=== PATIENT | male | born 1965 | race Caucasian/White ===

== ENCOUNTER 2019-07-05 15:13 | Emergency (ER) | payer OTHER ==
[~2019-07-05] VITALS: Ht 188 cm; Wt 81.7 kg
--- OUTSIDE RECORDS SUMMARY | 2019-07-05 15:16 | XMS ---
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 Jae has no Care Guidelines for this patient. Serjio VISIT COUNT (12 MO.) 1 FROILAN Erickson TOTAL 1 NOTE: Visits indicate total known visits. ED/UCC VISIT TRACKING (12 MO.) 07/05/2019 15:15 FROILAN Wei OR TYPE: Emergency COMPLAINT: - MEDICATION PROBLEM/ WITHDRAWL INPATIENT VISIT TRACKING (12 MO.) No inpatient visits to display in this time frame [id number]
[2019-07-05] MEDS ORDERED: LISINOPRIL40 MG PO (15:32)
[2019-07-05] MEDS ORDERED: METHADONE HCL10 MG PO (15:32)
[2019-07-05] MEDS ORDERED: HYDROCHLOROTHIA25 MG PO (15:33)
[2019-07-05] MEDS ORDERED: ATIVAN1 MG PO (16:01)
[2019-07-05] MEDS ORDERED: CLONIDINE HCL0.1 MG PO (16:01)
[2019-07-05] MEDS ORDERED: ONDANSETRON ODT8 MG PO (16:01)
[2019-07-05] MEDS ORDERED: HYDROXYZINE HCL25 MG PO (16:01)
== END 2019-07-05 16:54 | disposition home or self-care (01) ==
LOC: ED 15:13
DX: F11.23 Opioid dependence with withdrawal (principal); G89.29 Other chronic pain; M25.561 Pain in right knee; E11.9 Type 2 diabetes mellitus without complications; I10 Essential (primary) hypertension; Z87.891 Personal history of nicotine dependence; Z79.899 Other long term (current) drug therapy
CPT/HCPCS: 99283

== ENCOUNTER 2019-07-09 09:12 | Inpatient (IN) | payer OTHER ==
[~2019-07-09] VITALS: Ht 188 cm; Wt 75.3 kg
[~2019-07-09 09:12] MED LIST: ATIVAN1 MG PO; CLONIDINE HCL0.1 MG PO; HYDROCHLOROTHIA25 MG PO; HYDROXYZINE HCL25 MG PO; LISINOPRIL40 MG PO; METHADONE HCL10 MG PO; ONDANSETRON ODT8 MG PO
--- OUTSIDE RECORDS SUMMARY | 2019-07-09 09:14 | XMS ---
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 - 2 Visits in 30 Days CARE PROVIDERS There are no care providers on record at this time. Jae has no Care Guidelines for this patient. Serj[facility]12 [address] [facility] NOTE: Visits indicate total known visits. ED/C VISIT TRACKING (12 MO.) 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
[2019-07-09] MEDS ORDERED: LORAZEPAM1 MG PO (09:21)
[2019-07-09] MEDS ORDERED: TRAZODONE HCL150 MG PO (09:23)
[2019-07-09] MEDS ORDERED: JARDIANCE10 MG PO (09:23)
[2019-07-09] MEDS ORDERED: METFORMIN HCL1000 MG PO (09:23)
[2019-07-09] MEDS ORDERED: LISINOPRIL20 MG PO (16:16)
--- NOTE | 2019-07-09 19:26 | EKG ---
[facility] [address] [place] [address] Signed Sinus tachycardia T wave abnormality, consider inferior ischemia Abnormal ECG When compared with ECG of 09-JUL-2019 09:31, (Unconfirmed) [place] interval has decreased QRS duration has decreased Criteria for Inferior infarct are no longer present ST no longer elevated in Inferior leads ST no longer depressed in Anterolateral leads T wave inversion now evident in Inferior leads Confirmed by IVELISSE JACK MD ([id number]) on 07/09/2019 7:26:40 PM Electronically Signed By: IVELISSE JACK MD 07/09/196 PATIENT NAME: GERONIMO FONSECA Electrocardiogram DATE OF : 65 PHYSICIAN: IVELISSE JACK MD REPORT #: [id number] REPORT IS CONFIDENTIAL AND NOT TO BE RELEASED WITHOUT AUTHORIZATION
--- NOTE | 2019-07-09 19:26 | EKG ---
[facility] [address] [place], [place] [address] Signed Sinus tachycardia with 1st degree AV block Right atrial enlargement Left axis deviation Nonspecific intraventricular block Inferior infarct , age undetermined Abnormal ECG No previous ECGs available Confirmed by IVELISSE JACK MD ([id number] on 07/09/2019 7:26:18 PM Electronically Signed By: IVELISSE JACK MD 07/09/191925 PATIENT NAME: GERONIMO FONSECA Electrocardiogram DATE OF : 65 PHYSICIAN: IVELISSE JACK MD REPORT #: [id number] REPORT IS CONFIDENTIAL AND NOT TO BE RELEASED WITHOUT AUTHORIZATION
[2019-07-11] MEDS ORDERED: METHADONE HCL10 MG PO (12:44)
[2019-07-11] MEDS ORDERED: ONDANSETRON ODT8 MG PO (12:45)
[2019-07-11] MEDS ORDERED: POTASSIUM GLUCO99 MG PO (12:46)
[2019-07-11] MEDS ORDERED: CINNAMON500 MG PO (12:47)
[2019-07-13] MEDS ORDERED: NICOTINE GUM2 MG MM (10:19)
[2019-07-13] MEDS ORDERED: LANTUS100 UNITS/ SUB-Q (10:21)
[2019-07-13] MEDS ORDERED: HUMALOG100 UNITS/ SUB-Q (10:22)
[2019-07-13] MEDS ORDERED: METHADONE HCL5 MG PO (10:23)
== END 2019-07-13 11:05 | disposition home or self-care (01) | DRG 638 ==
LOC: ED 09:12 → CCU 09:13 → MS 07-10 11:47 → CCU 07-10 11:48 → MS 07-11 10:56
PROVIDERS: ADMIT Student in an Organized Health Care Education/Training Program
DX: E11.10 Type 2 diabetes mellitus with ketoacidosis without coma (principal); N17.9 Acute kidney failure, unspecified; F11.23 Opioid dependence with withdrawal; I10 Essential (primary) hypertension; F17.200 Nicotine dependence, unspecified, uncomplicated; F10.20 Alcohol dependence, uncomplicated; Z79.899 Other long term (current) drug therapy; Z79.84 Long term (current) use of oral hypoglycemic drugs
CPT/HCPCS: 36415; 71045; 80048; 80053; 81001; 82010; 82550; 82728; 82803; 83036; 83605; 83690; 83735; 84100; 84484; 85025; 93005; 93010; 96361; 96374; 96375; 96376; 99285-25; 99406; G0378; G0480; J1815; J2270; J2405; J3480; J7030; J7042; J7060; J7070; J7120; J7121; Q0177; U0002

== ENCOUNTER 2021-12-13 09:11 | Emergency (ER) | payer OTHER ==
[~2021-12-13] VITALS: Ht 188 cm; Wt 78.0 kg
[~2021-12-13 09:11] MED LIST changes: +CINNAMON500 MG PO; +HUMALOG100 UNITS/ SUB-Q; +JARDIANCE10 MG PO; +LANTUS100 UNITS/ SUB-Q; +LISINOPRIL20 MG PO; +LORAZEPAM1 MG PO; +METFORMIN HCL1000 MG PO; +METHADONE HCL5 MG PO; +NICOTINE GUM2 MG MM; +POTASSIUM GLUCO99 MG PO; +TRAZODONE HCL150 MG PO
--- OUTSIDE RECORDS SUMMARY | 2021-12-13 09:14 | XMS ---
PreManage Notification: GERONIMO FONSECA Security Development Technical Lead Events No recent Security Events currently on file CRITERIA MET - [facility] CARE PROVIDERS [facility] Current PHONE: [phone] Jae has no Care Guidelines for this patient. EMehdi VISIT COUNT (12 MO.) 1 FROILAN Erickson TOTAL 1 NOTE: Visits indicate total known visits. ED/UCC VISIT TRACKING (12 MO.) 12/13/2021 09:12 FROILAN Wei OR TYPE: Emergency COMPLAINT: - LACERATION RT LOWER LEG INPATIENT VISIT TRACKING (12 MO.) No inpatient visits to display in this time frame [id number]
== END 2021-12-13 11:45 | disposition home or self-care (01) ==
LOC: ED 09:11
DX: S81.811A Laceration without foreign body, right lower leg, initial encounter (principal); E10.9 Type 1 diabetes mellitus without complications; I10 Essential (primary) hypertension; F17.200 Nicotine dependence, unspecified, uncomplicated; Z79.4 Long term (current) use of insulin; Z79.899 Other long term (current) drug therapy; W26.8XXA Contact with other sharp object(s), not elsewhere classified, initial encounter; Y99.0 Civilian activity done for income or pay
CPT/HCPCS: 12004; 99282-25